=== PATIENT | female | born 1950 | race Caucasian/White ===

== ENCOUNTER 2018-05-31 13:39 | Inpatient (IN) | payer MEDICARE ==
[~2018-05-31] VITALS: Ht 154.9 cm; Wt 52.2 kg
[2018-05-31 15:34] LABS: HEMATOCRIT. 29.8 % (36.0-48.0); HEMOGLOBIN. 10.2 g/dL (12.0-16.0); MEAN CORPUSCULAR HEMOGLOBIN 39.7 pg (28.0-32.0); MEAN CORPUSCULAR VOLUME 116.1 fL (81.0-99.0); RED BLOOD CELL COUNT 2.56 mill/uL (4.2-5.4); RED CELL DISTRIBUTION WIDTH 20.9 % (11.6-14.6)
[2018-05-31 15:37] LABS: PLATELET 43 x1000/uL (130-400)
[2018-05-31 15:40] LABS: CHLORIDE 106 mEq/L (98-107)
[2018-05-31 15:44] LABS: ETHANOL BLOOD < 10 mg/dL
[2018-05-31 15:51] LABS: INR 1.1; PROTHROMBIN TIME 11.4 sec (9.1-11.1)
[2018-05-31 16:42] LABS: PLATELET ESTIMATE MARKEDLY DECREASED
[2018-05-31 17:02] LABS: CLARITY URINE CLEAR (CLEAR); COLOR URINE DARK YELLOW (YELLOW); KETONES URINE NEGATIVE (NEGATIVE); LEUKOCYTE ESTERASE URINE NEGATIVE (NEGATIVE); NITRITE URINE NEGATIVE (NEGATIVE); OCCULT BLOOD URINE TRACE (NEGATIVE); PH URINE 5.5 (4.5-8.0); PROTEIN URINE NEGATIVE (NEGATIVE); SPECIFIC GRAVITY URINE 1.013 (1.005-1.030)
[2018-05-31 17:13] LABS: *AMPHETAMINES SCREEN URINE NEGATIVE (NEGATIVE); *BARBITURATES SCREEN URINE NEGATIVE (NEGATIVE); *BENZODIAZEPINES SCREEN URINE NEGATIVE (NEGATIVE); *COCAINE SCREEN URINE NEGATIVE (NEGATIVE)
[2018-05-31 17:14] LABS: CANNABINOID URINE SCREEN NEGATIVE (NEGATIVE); METHADONE URINE SCREEN NEGATIVE (NEGATIVE); OPIATES URINE SCREEN NEGATIVE (NEGATIVE); PHENCYCLIDINE URINE SCREEN NEGATIVE (NEGATIVE)
[2018-05-31] MEDS ORDERED: ACETAMINOPHEN 650MG/20.3ML UDC GT PRN (18:45)
[2018-05-31] MEDS ORDERED: MAGNESIUM/ALUMINUM HYDROXIDE/SIMETHICONE 30ML UDC PO PRN (18:45)
[2018-05-31] MEDS ORDERED: IPRATROPIUM/ALBUTEROL 0.5-3(2.5)MG/3ML NEB INH PRN (18:45)
[2018-05-31] MEDS ORDERED: DIPHENHYDRAMINE 50MG/ML VIAL IV PRN (18:45)
[2018-05-31] MEDS ORDERED: DOCUSATE SODIUM 100MG CAPSULE PO PRN (18:45)
[2018-05-31] MEDS ORDERED: HYDROCODONE/ACETAMINOPHEN 10/325MG TABLET PO PRN (18:45)
[2018-05-31] MEDS ORDERED: CLONIDINE 0.1MG TABLET PO PRN (18:45)
[2018-05-31] MEDS ORDERED: GUAIFENESIN 200MG/10ML SUGAR FREE UDC PO PRN (18:45)
[2018-05-31] MEDS ORDERED: ACETAMINOPHEN 650MG SUPP PR PRN (18:45)
[2018-05-31] MEDS ORDERED: ONDANSETRON HCL 4MG/2ML INJ IV PRN (18:45)
[2018-05-31 22:15] VITALS: BP 140/81
[2018-05-31] MEDS ORDERED: HYDROCODONE/ACETAMINOPHEN 5/325MG TABLET PO PRN (22:30)
[2018-06-01] VITALS: BP 140/81
[2018-06-01] MEDS: LORAZEPAM 2MG/ML CPJ IV PRN ×2 (00:42→22:48)
[2018-06-01 04:00] VITALS: BP 137/66
[2018-06-01] MEDS: SODIUM CHLORIDE 0.9% INJ 3ML FLUSH IVF SCH ×3 (06:34→21:14)
[2018-06-01 07:01] LABS: HEMATOCRIT. 27.8 % (36.0-48.0); HEMOGLOBIN. 9.6 g/dL (12.0-16.0); MEAN CORPUSCULAR HEMOGLOBIN 40.1 pg (28.0-32.0); MEAN CORPUSCULAR VOLUME 115.8 fL (81.0-99.0); MEAN PLATELET VOLUME 8.7 fl (7.4-10.4); RED CELL DISTRIBUTION WIDTH 20.7 % (11.6-14.6)
[2018-06-01 07:27] LABS: CHLORIDE 108 mEq/L (98-107)
[2018-06-01 07:31] LABS: PLATELET 39 x1000/uL (130-400)
[2018-06-01 07:47] LABS: LDL CHOLESTEROL 63 mg/dL (5-100)
[2018-06-01 07:48] LABS: HDL CHOLESTEROL 20 mg/dL (40-59)
[2018-06-01 08:00] VITALS: BP 128/73
[2018-06-01] MEDS ORDERED: ENOXAPARIN 40MG/0.4ML SYR SUBCUT SCH (09:00)
[2018-06-01] MEDS ORDERED: NA PHOS,M-B/NA PHOS,DI-BA ENEMA 118ML PR PRN (09:00)
[2018-06-01 12:00] VITALS: BP 133/69
[2018-06-01 12:12] LABS: HEPATITIS B SURFACE ANTIGEN NEGATIVE
[2018-06-01 12:42] LABS: HEPATITIS A AB IGM NEGATIVE (NEGATIVE)
[2018-06-01 12:59] LABS: PLATELET ESTIMATE MARKEDLY DECREASED
[2018-06-01 16:00] VITALS: BP 131/70
[2018-06-01 20:00] VITALS: BP 160/81
[2018-06-01] MEDS ORDERED: FILGRASTIM-TBO 300 MCG/0.5 ML SYRINGE SQ NR (21:00)
[2018-06-02] VITALS: BP 138/73
[2018-06-02 04:00] VITALS: BP 148/92
[2018-06-02] MEDS: SODIUM CHLORIDE 0.9% INJ 3ML FLUSH IVF SCH ×3 (05:41→22:55)
[2018-06-02 08:00] VITALS: BP 138/70
[2018-06-02 12:00] VITALS: BP 130/78
[2018-06-02 16:00] VITALS: BP 120/86
[2018-06-02 20:00] VITALS: BP 139/72
[2018-06-02] MEDS: LORAZEPAM 2MG/ML CPJ IV PRN (20:34)
[2018-06-02 23:43] LABS: HEMATOCRIT. 23.9 % (36.0-48.0); HEMOGLOBIN. 8.4 g/dL (12.0-16.0); MEAN CORPUSCULAR HEMOGLOBIN 40.6 pg (28.0-32.0); MEAN CORPUSCULAR VOLUME 115.6 fL (81.0-99.0); MEAN PLATELET VOLUME 8.6 fl (7.4-10.4); RED BLOOD CELL COUNT 2.07 mill/uL (4.2-5.4); RED CELL DISTRIBUTION WIDTH 20.5 % (11.6-14.6)
[2018-06-02 23:47] LABS: CHLORIDE 109 mEq/L (98-107)
[2018-06-02 23:56] LABS: PLATELET 25 x1000/uL (130-400)
[2018-06-03] VITALS: BP 134/71
[2018-06-03 04:00] VITALS: BP 145/79
[2018-06-03 05:28] LABS: ATYPICAL LYMPHOCYTES 2; NUCLEATED RED BLOOD CELLS 1 /100 WBC
[2018-06-03 05:29] LABS: PLATELET ESTIMATE DECREASED
[2018-06-03] MEDS: SODIUM CHLORIDE 0.9% INJ 3ML FLUSH IVF SCH ×2 (06:16→23:56)
[2018-06-03 08:00] VITALS: BP 129/83
[2018-06-03 12:00] VITALS: BP 128/73
[2018-06-03 16:00] VITALS: BP 143/80
[2018-06-03] MEDS ORDERED: AMLO5TAB88 MT (17:37)
[2018-06-03] MEDS ORDERED: MULT-1146 MT (17:53)
[2018-06-03] MEDS ORDERED: TOPI100T37 MT (17:53)
[2018-06-03] MEDS ORDERED: QUET25TA34 MT (17:53)
[2018-06-03] MEDS ORDERED: CARV6.2548 MT (17:53)
[2018-06-03] MEDS ORDERED: OXYB5TAB11 MT (17:53)
[2018-06-03] MEDS ORDERED: ZIPR60CA6 MT (17:53)
[2018-06-03] MEDS ORDERED: TOPI50TA24 MT (17:53)
[2018-06-03] MEDS ORDERED: LOSA25TA12 MT (17:53)
[2018-06-03] MEDS ORDERED: [UNRECOGNIZED DRUG - CODE] MT (17:53)
[2018-06-03] MEDS ORDERED: QUET50TA21 MT (17:53)
[2018-06-03] MEDS ORDERED: [UNRECOGNIZED DRUG - CODE] BC (17:53)
[2018-06-03] MEDS: LORAZEPAM 2MG/ML CPJ IV PRN ×2 (19:34→23:38)
[2018-06-03 20:00] VITALS: BP 114/75
[2018-06-04] VITALS: BP 117/62
[2018-06-04] MEDS: ACETAMINOPHEN 325MG TABLET PO PRN ×2 (01:21→16:08)
[2018-06-04 04:00] VITALS: BP 122/66
[2018-06-04] MEDS: SODIUM CHLORIDE 0.9% INJ 3ML FLUSH IVF SCH (06:12)
[2018-06-04 06:26] LABS: HEMATOCRIT. 25.4 % (36.0-48.0); HEMOGLOBIN. 8.8 g/dL (12.0-16.0); MEAN CORPUSCULAR HEMOGLOBIN 40.9 pg (28.0-32.0); MEAN CORPUSCULAR VOLUME 118.3 fL (81.0-99.0); MEAN PLATELET VOLUME 13.3 fl (7.4-10.4); RED BLOOD CELL COUNT 2.14 mill/uL (4.2-5.4); RED CELL DISTRIBUTION WIDTH 20.4 % (11.6-14.6)
[2018-06-04 06:50] LABS: CHLORIDE 105 mEq/L (98-107)
[2018-06-04 08:00] VITALS: BP 157/90
[2018-06-04 08:24] LABS: PLATELET 21 x1000/uL (130-400)
[2018-06-04 12:00] VITALS: BP 144/82
[2018-06-04 14:13] LABS: PLATELET ESTIMATE MARKEDLY DECREASED
[2018-06-04 16:00] VITALS: BP 170/89
[2018-06-04 21:34] VITALS: BP 113/76
[2018-06-04] MEDS: LORAZEPAM 2MG/ML CPJ IV PRN (21:58)
[2018-06-05] VITALS: BP 120/67
[2018-06-05] MEDS: ACETAMINOPHEN 325MG TABLET PO PRN ×3 (02:10→17:29)
[2018-06-05 04:00] VITALS: BP 114/72
[2018-06-05 04:17] LABS: BARBITURATE SCREEN Negative ug/mL (Cutoff:0.1); BENZODIAZEPINE SCREEN Negative ng/mL (Cutoff:20); OPIATES SCREEN Negative ng/mL (Cutoff:5); PHENCYCLIDINE SCREEN Negative ng/mL (Cutoff:8)
[2018-06-05 08:00] VITALS: BP 102/67
[2018-06-05] MEDS: CEPHALEXIN 250MG CAPSULE PO SCH ×2 (10:57→23:21)
[2018-06-05 12:00] VITALS: BP 141/74
[2018-06-05 16:00] VITALS: BP 115/80
[2018-06-05 20:00] VITALS: BP 138/83
[2018-06-05] MEDS: SODIUM CHLORIDE 0.9% INJ 3ML FLUSH IVF SCH (23:30)
[2018-06-06] VITALS: BP 138/83
[2018-06-06] MEDS ORDERED: TRAZODONE HCL 50MG TABLET PO PRN (00:15)
[2018-06-06 04:00] VITALS: BP 132/63
[2018-06-06] MEDS: CEPHALEXIN 250MG CAPSULE PO SCH ×2 (06:16→13:21)
[2018-06-06] MEDS: SODIUM CHLORIDE 0.9% INJ 3ML FLUSH IVF SCH ×2 (06:17→13:21)
[2018-06-06 08:00] VITALS: BP 134/69
[2018-06-06 08:54] LABS: HEMATOCRIT 24.4 % (36.0-48.0); HEMOGLOBIN 8.1 g/dL (12.0-16.0)
[2018-06-06] MEDS: ACETAMINOPHEN 325MG TABLET PO PRN (09:02)
[2018-06-06 10:17] VITALS: BP_SYST 128; BP_SYST 134; BP_DIAS 68; BP_DIAS 69
[2018-06-06 12:00] VITALS: BP 115/62
== END 2018-06-06 14:42 | DRG 808 ==
LOC: ER 13:39 → 6EST 17:10 → ENRESERV 18:53 → 6EST 23:00
PROVIDERS: ADMIT Family Medicine; ATTEND Family Medicine
DX: D61.818 Other pancytopenia (principal); E43 Unspecified severe protein-calorie malnutrition; K76.6 Portal hypertension; F20.9 Schizophrenia, unspecified; K80.20 Calculus of gallbladder without cholecystitis without obstruction; K74.60 Unspecified cirrhosis of liver; F17.210 Nicotine dependence, cigarettes, uncomplicated; R16.1 Splenomegaly, not elsewhere classified; I86.8 Varicose veins of other specified sites; I71.4 Abdominal aortic aneurysm, without rupture; I10 Essential (primary) hypertension; E78.1 Pure hyperglyceridemia; B19.20 Unspecified viral hepatitis C without hepatic coma; J44.9 Chronic obstructive pulmonary disease, unspecified; Z68.21 Body mass index [BMI] 21.0-21.9, adult
CPT/HCPCS: 36415; 76700; 80048; 80061; 80076; 80305; 80307; 80329; 82140; 85014; 85018; 86705; 86709; 86803; 87340; 93970; 96372; 97116; 97162; 97166; 97530; 99285; C1893; G0482; J1442; J2060; J7620